=== PATIENT | male | born 1940 | race Caucasian/White ===

== ENCOUNTER → 2017-06-18 11:21 | Outpatient (CLI) | payer MEDICARE, OTHER, SELFPAY ==
[2017-06-18 12:32] LABS: Absolute Lymphocyte Count 2.76 X10^3/ul (0.83-4.51); Absolute Neutrophil Count 3.9 X10^3/uL (2.0-7.7); Basophil# 0.03 X10^3/uL; Basophil% 0.4 % (0-1); Eosinophil# 0.38 X10^3/uL; Hematocrit 42.2 % (40-54); Hemoglobin 13.5 g/dl (13.0-16.5); Lymphocyte # 2.76 X10^3/ul (4.0); Mean Corpuscular Hgb 30.8 pg (27.0-32.0); Mean Corpuscular Volume 96.1 fL (80-94); Mean Platelet Vol. 10.1 fl (6.2-12.0); Monocyte# 0.63 X10^3/uL; Monocyte% 8.2 % (0-10); Neutrophil # 3.85 X10^3/uL (2.7-7.7); Neutrophil % 50.3 % (47-70); POSITIVE COUNT NO; POSITIVE DIFFERENTIAL NO; POSITIVE MORPHOLOGY NO; Platelet Count 259 K/mm3 (150-450); RBC Distribution Width CV 13.2 % (11.6-14.6); RBC Distribution Width SD 45.6 fl (35.1-43.9); Red Blood Count 4.39 M/mm3 (4.6-6.2); White Blood Count 7.7 K/mm3 (4.4-11.0)
[2017-06-18 12:57] LABS: AST(SGOT) 15 U/L (15-37); Alanine Aminotransfer ALT/SGPT 24 U/L (16-61); Albumin, Serum 3.5 g/dL (3.2-5.0); Alkaline Phosphatase 59 U/L (45-117); Anion Gap 6 (5-15); BUN 17 mg/dL (7-18); Calcium,Total 8.4 mg/dL (8.5-10.1); Chloride 107 mmol/L (98-107); Cholesterol 116 mg/dL (200); Creatinine, Serum 1.13 mg/dL (0.70-1.30); EST Glomerular Filtration Rate 67 mL/min (>60); Est Glom Filt Rate - Afr Amer 81 mL/min (>60); Globulin 3.6 g/dL (2.2-4.2); Glucose 113 mg/dL (74-106); High Density Lipoprotein 39 mg/dL; Potassium 4.1 mmol/L (3.5-5.1); Protein, Total 7.1 g/dL (6.4-8.2); Sodium Level 141 mmol/L (136-145); Triglycerides 136 mg/dL; Very Low Density Lipoprotein 27 mg/dL (5-40)
[2017-06-18 12:58] LABS: Hemoglobin A1c 7.1 % (4.2-6.3)
[2017-06-18 13:06] LABS: Microalbumin,Random Urine 15.8 mg/L (NO RANGE EST.)
== END ==
PROVIDERS: Family Provider Family Medicine; PCP Family Medicine; Visit Provider Family Medicine
DX: E11.40 Type 2 diabetes mellitus with diabetic neuropathy, unspecified (principal); I10 Essential (primary) hypertension; E78.5 Hyperlipidemia, unspecified
CPT/HCPCS: 36415; 80053; 80061; 82043; 82570; 83036; 85025

== ENCOUNTER → 2017-12-16 15:43 | Outpatient (CLI) | payer MEDICARE, OTHER, SELFPAY ==
[2017-12-16 16:32] LABS: Absolute Lymphocyte Count 3.04 X10^3/ul (0.83-4.51); Absolute Neutrophil Count 7.6 X10^3/uL (2.0-7.7); Basophil# 0.04 X10^3/uL; Basophil% 0.3 % (0-1); Eosinophil# 0.52 X10^3/uL; Eosinophils% 4.3 % (0-5); Hematocrit 38.4 % (40-54); Hemoglobin 12.9 g/dl (13.0-16.5); Lymphocyte # 3.04 X10^3/ul (4.0); Lymphocyte % 25.1 % (19-41); Mean Corp Hgb Conc 33.6 g/gl (32-36); Mean Corpuscular Hgb 32.2 pg (27.0-32.0); Mean Corpuscular Volume 95.8 fL (80-94); Mean Platelet Vol. 9.7 fl (6.2-12.0); Monocyte% 7.4 % (0-10); Neutrophil # 7.57 X10^3/uL (2.7-7.7); Neutrophil % 62.7 % (47-70); Platelet Count 264 K/mm3 (150-450); RBC Distribution Width CV 12.8 % (11.6-14.6); RBC Distribution Width SD 43.4 fl (35.1-43.9); Red Blood Count 4.01 M/mm3 (4.6-6.2); White Blood Count 12.1 K/mm3 (4.4-11.0)
[2017-12-16 16:59] LABS: ALB/GLOB Ratio 1.1 RATIO (0.9-2.4); AST(SGOT) 15 U/L (15-37); Alanine Aminotransfer ALT/SGPT 25 U/L (16-61); Albumin, Serum 3.7 g/dL (3.2-5.0); Alkaline Phosphatase 60 U/L (45-117); Anion Gap 8 (5-15); BUN 22 mg/dL (7-18); Calcium,Total 8.7 mg/dL (8.5-10.1); Chloride 109 mmol/L (98-107); Cholesterol 123 mg/dL (200); Creatinine, Serum 1.16 mg/dL (0.70-1.30); EST Glomerular Filtration Rate 65 mL/min (>60); Est Glom Filt Rate - Afr Amer 78 mL/min (>60); Globulin 3.4 g/dL (2.2-4.2); Glucose 101 mg/dL (74-106); High Density Lipoprotein 36 mg/dL; Potassium 4.2 mmol/L (3.5-5.1); Protein, Total 7.1 g/dL (6.4-8.2); Sodium Level 142 mmol/L (136-145); Triglycerides 127 mg/dL; Very Low Density Lipoprotein 25 mg/dL (5-40)
[2017-12-16 17:07] LABS: POSITIVE COUNT NO; POSITIVE DIFFERENTIAL NO; POSITIVE MORPHOLOGY NO
[2017-12-16 17:31] LABS: Hemoglobin A1c 6.8 % (4.2-6.3)
[2017-12-16 17:47] LABS: Microalbumin,Random Urine 13.4 mg/L (NO RANGE EST.); Microalbumin:Creatinine Ratio 11.4 mg/g CRE (<30 mg/g CRE)
== END ==
PROVIDERS: Family Provider Family Medicine; PCP Family Medicine; Visit Provider Family Medicine
DX: E11.40 Type 2 diabetes mellitus with diabetic neuropathy, unspecified (principal); E78.5 Hyperlipidemia, unspecified; I10 Essential (primary) hypertension
CPT/HCPCS: 36415; 80053; 80061; 82043; 82570; 83036; 85025

== ENCOUNTER 2018-11-28 13:41 | Emergency (ER) | payer MEDICARE, OTHER, SELFPAY ==
[2018-11-28 13:42] VITALS: BP 150/67; PULSE 71; RESP 16; TEMP 36.9; O2SAT 96; BMI 32.1
--- NOTE | 2018-11-28 14:22 | CT_ITS ---
STUDY: CT ABDOMEN AND PELVIS WITHOUT CONTRAST REASON FOR EXAM: Male, 78 years old. Right-sided pain RADIATION DOSAGE (If Supplied By Facility): CTDIvol = ( 14.61 ) mGy, DLP = ( 773.91 ) mGycm TECHNIQUE: Transaxial images were obtained from the dome of the diaphragm to the symphysis pubis without oral contrast, and without intravenous contrast. Sagittal and coronal images were reconstructed. Individualized dose optimization techniques were used for this CT. COMPARISON: None. FINDINGS: The visualized lung bases are unremarkable. The visualized portions of the heart are within normal limits. Small hiatal hernia. Normal liver. There are multiple gallstones. Normal spleen. Normal pancreas. Normal bilateral adrenal glands. Right obstructive uropathy due to 6.4 mm stone at the level of L4, with mild to moderate right hydroureteronephrosis proximal to this stone. 1.3 cm probable hyperdense cyst versus solid lesion in the right lower kidney. 5.8 CM left upper pole renal cyst. There is left lower renal calyceal stone measuring up to 1.4 x 0.9 CM in cross-section. Normal visualized stomach. Normal small intestine. There are multiple colonic diverticula consistent with diverticulosis. The appendix is visualized and appears normal. There is diffuse atherosclerotic calcification of the abdominal aorta, without a demonstrated aneurysm. Normal inferior vena cava. Normal retroperitoneum. Normal urinary bladder. Prostatomegaly. There is a small umbilical hernia containing fat. There are diffuse degenerative changes of the visualized lumbar spine. CT/Abdomen/Pelvis without Cont IMPRESSION: Right obstructive uropathy due to 6.4 mm stone at the level of L4, with mild to moderate right hydroureteronephrosis proximal to this stone. 1.3 cm probable hyperdense cyst versus solid lesion in the right lower kidney. 5.8 CM left upper pole renal cyst. There is left lower renal calyceal stone measuring up to 1.4 x 0.9 CM in cross-section. Prostatomegaly. Small hiatal hernia. Electronically Signed: Santana Benson MD at 15:04 EDT Tel [phone], Service support ,
--- NOTE | 2018-11-28 14:29 | ED.VIS.GEN ---
History of Present Illness Chief Complaint: Abd Pain Detail of Chief Complaint: Right flank and right sided abdominal pain Informant: Patient Onset: Yesterday Context: Sudden Onset Timing: Continuous, Waxes and wanes Quality: Pain Location: Predominantly right lower quadrant today Current Severity: Mild Maximum Severity: Severe Worsened by: Nothing Relieved by: Ibuprofen Associated Symptoms: Nausea last evening Narrative: Patient is an elderly male with history of renal/ureterolithiasis. Last time he sought medical attention for obstructing stone was 15 years ago. He presents with right flank/abdominal pain that started last evening. There is associated nausea. He denies fever, chills night sweats. He denies dysuria, frequency, urgency hematuria. He denies testicular pain. There is no history of trauma. He denies anorexia. He has no food intolerance. Prior similar symptoms: Yes - 15 years ago secondary to obstructing stone Recent Illness/Hospitalization: No - Past Medical History (1) Ureterolithiasis Status: Acute (2) History of type 2 diabetes mellitus Status: Acute (3) Accelerated hypertension Status: Acute Past Medical History - Allergies and Home Meds Allergies/Adverse Reactions: Allergies No Known Allergies Allergy (Verified 11/28/18 13:42) Primary Care Physician: Tai Lopez DO [Primary Care Provider] - Prior records reviewed: Yes Surgical History: noncontributory Lives: Spouse/ Significant Other Smoking Status: Never smoker Alcohol: None Drugs: None Review of Systems General: Denies: Chills, Fever, Sweats Eyes: Denies: Visual changes - bilaterally, Diplopia Cardiovascular: Denies: Chest pain, Palpitations Respiratory: Denies: Dyspnea, Cough, Dyspnea on exertion Gastrointestinal: Reports: Abdominal pain, Nausea. Denies: Vomiting, Diarrhea, Constipation, Melena, Hematochezia, -, - Musculoskeletal: Reports: Back pain. Denies: Myalgias, Arthralgias, Neck pain, Swelling, Extremity Pain, -, - Neurological: Denies: Headache, Weakness, Numbness Hematologic: Denies: Easy bruising, Easy bleeding Allergy: Denies: Uticaria, Swelling of the mouth Physical Exam Vital Signs/Narrative: Vital Signs Temp Pulse Resp BP Pulse Ox 11/28/18 13:42 98.4 F 71 16 150/67 H 96 Inital Vital Signs reviewed: Yes General: Well nourished, Well developed, No Acute Distress Head: Normocephalic, Atraumatic Eyes: Perrl, EOMI ENT: Moist mucous membranes, No rhinorrhea Neck: Supple, Nontender Cardiovascular: Regular rate, Regular rhythm, No murmurs, Normal S1, Normal S2 Respiratory: No distress, CTA bilaterally, Chest nontender Abdomen: Soft, Nontender, Nondistended, Normal bowel sounds, No masses Back: Nontender, Normal Inspection. Negative for: CVA tenderness Extremities: Nontender, No edema Skin: Normal color, No rash Neurological: Alert, Oriented x3, Cranial nerves II-XII grossly intact, Normal Strength, Normal Sensation Psychological: Normal affect, Normal Mood Diagnostic/Tx/Re-eval Impressions Abdomen/Pelvis CT 11/28/18 14:22 IMPRESSION: Right obstructive uropathy due to 6.4 mm stone at the level of L4, with mild to moderate right hydroureteronephrosis proximal to this stone. 1.3 cm probable hyperdense cyst versus solid lesion in the right lower kidney. 5.8 CM left upper pole renal cyst. There is left lower renal calyceal stone measuring up to 1.4 x 0.9 CM in cross-section. Prostatomegaly. Small hiatal hernia. Electronically Signed: Santana Benson MD at 15:04 EDT Tel [phone], Service support , 11/28/18 14:22 Abdomen/Pelvis without Cont [CT] Stat Laboratory Results 11/28/18 14:30 Sodium 142 Potassium 4.5 Chloride 110 H Carbon Dioxide 26.0 Anion Gap 6 BUN 25 H Creatinine 1.67 H Estim Creat Clear Calc 38.20 Est GFR (MDRD) Af Amer 51 L Est GFR (MDRD) Non-Af 42 L BUN/Creatinine Ratio 15.0 Glucose 133 H Calcium 8.8 Patient has an obstructing right stone. Renal function is slightly impaired with a creatinine of 1.67. We will need to compare prior lab results. Prior creatinine 1.22 December 2017. This may be secondary to patient taking NSAIDs. UA is unremarkable other than microscopic hematuria. Case was discussed with urology. Patient was informed not to take any more ibuprofen. - Medical Decision Making Abrupt onset of pain need to evaluate for ureterolithiasis with obstruction. UA was obtained to assess for infection. CBC was obtained to assess white count and H&H. This may also represent atypical presentation for appendicitis since pain is predominantly right lower quadrant at this time. There is no evidence of inguinal hernia. Patient was offered pain medicine. He states that ibuprofen took at home has essentially alleviated his pain. Says it was very significant last evening. ED Disposition - Plan for ED Patient: Disposition: Home or Assisted Living Diagnosis: Hydronephrosis concurrent with and due to calculi of kidney and ureter, Acute renal insufficiency Instructions: KIDNEY STONE w/ Colic, Renal Insufficiency Prescriptions: Oxycodone HCl/Acetaminophen [Percocet 5/325] 1 tab PO Q6H PRN PRN 5 Days #20 tab PRN Reason: Right sided pain Prescription Printed Referrals: Tai Lopez DO [Primary Care Provider] - Nick Guallpa MD [STAFF PHYSICIAN] - 3-5 Days Additional Instructions: Not take ibuprofen or Aleve because of injury to your kidney.
[2018-11-28 14:52] LABS: Anion Gap 6 (5-15); BUN 25 mg/dL (7-18); Calcium,Total 8.8 mg/dL (8.5-10.1); Chloride 110 mmol/L (98-107); Creatinine, Serum 1.67 mg/dL (0.70-1.30); EST Glomerular Filtration Rate 42 mL/min (>60); Est Glom Filt Rate - Afr Amer 51 mL/min (>60); Glucose 133 mg/dL (74-106); Potassium 4.5 mmol/L (3.5-5.1); Sodium Level 142 mmol/L (136-145)
[2018-11-28 15:08] LABS: Bacteria 0 SEEN /hpf (None Seen); Mucous, Urine 0 SEEN /hpf (<or=2+); Squamous Epithelial Cells - UA 0 SEEN /hpf (0-5)
[2018-11-28 15:20] LABS: Color, Urine Yellow (Yellow); Glucose, Dipstick 100 mg/dl (Normal); Ketone-Dipstick Negative (Negative); Leukocyte Esterase-Dipstick 100 /ul (Negative); Nitrite-Dipstick Negative (Negative); Occult Blood-Urine 250 /ul (Negative); Protein-Dipstick Negative (Negative); Specific Gravity, Urine 1.015 (1.002-1.030); Urine Bilirubin Dipstick Negative (Negative); Urine Clarity Clear (Clear); Urine Urobilinogen Normal (Normal)
[2018-11-28 15:29] LABS: Red Blood Cells-Urine 5-10 SEEN /hpf (0-5); White Blood Cells 0-5 SEEN /hpf (0-5)
[2018-11-28 16:00] VITALS: BP 126/58; PULSE 63; RESP 16; O2SAT 97
== END 2018-11-28 16:02 | disposition home or self-care (01) ==
PROVIDERS: Emergency Provider Emergency Medicine; Family Provider Family Medicine; PCP Family Medicine
DX: N13.2 Hydronephrosis with renal and ureteral calculous obstruction (principal); N28.9 Disorder of kidney and ureter, unspecified; Z87.442 Personal history of urinary calculi; I10 Essential (primary) hypertension; E11.9 Type 2 diabetes mellitus without complications; Z79.82 Long term (current) use of aspirin; Z79.84 Long term (current) use of oral hypoglycemic drugs
CPT/HCPCS: 74176; 80048; 81001; 99284; A4216

== ENCOUNTER → 2019-01-01 10:35 | Outpatient (CLI) | payer MEDICARE, OTHER, SELFPAY ==
--- NOTE | 2018-12-10 11:20 | RAD_ITS ---
STUDY: X-RAY - ABDOMEN/PELVIS REASON FOR EXAM: Male, 78 years old. Right-sided kidney stone. TECHNIQUE: Single AP view of the abdomen / pelvis. COMPARISON: None. FINDINGS: Normal visualized lung bases. There is an unremarkable bowel gas pattern. Small bilateral intrarenal calculi. There is a 3.4 mm rounded calcification in the right hemipelvis. This may represent a distal right ureteral calculus. Normal soft tissue structures. There are diffuse degenerative changes of the visualized lumbar spine. RAD/Abdomen Single View IMPRESSION: 3.4 mm rounded calcification in the right hemipelvis. Small bilateral intrarenal calculi. Electronically Signed: Danie Berger, at 11:37 EDT , Service support ,
[2018-12-10 11:46] LABS: Bedside Glucose 126 mg/dL (70-110)
[2018-12-10 11:50] VITALS: BP 105/52; PULSE 68; RESP 16; TEMP 36.9; O2SAT 96; BMI 30.2
[2018-12-10] MEDS: Lactated Ringers 1,000 ML 100 ML IV (12:08)
--- NOTE | 2018-12-10 14:35 | CT_ITS ---
STUDY: CT ABDOMEN AND PELVIS WITHOUT CONTRAST REASON FOR EXAM: Male, 78 years old. Right renal calculus. RADIATION DOSAGE (If Supplied By Facility): CTDIvol = ( 19.32 ) mGy, DLP = ( 950.76 ) mGycm TECHNIQUE: Transaxial images were obtained from the dome of the diaphragm to the symphysis pubis without oral contrast, and without intravenous contrast. Sagittal and coronal images were reconstructed. Individualized dose optimization techniques were used for this CT. COMPARISON: Comparison is made with prior examination November 28, 2018. FINDINGS: Mild degree of increased markings at the lung bases suggestive of atelectasis and/or scarring. The visualized portions of the heart are within normal limits. Normal liver. There are multiple small gallstones. Normal spleen. Normal pancreas. Normal bilateral adrenal glands. Stable 1.3 cm hyperdense cyst in the inferior posterior aspect of the right kidney. Since prior study, there has been a decrease in the right perinephric and periureteric stranding. The previously seen right ureteral calculus is not seen at this time. Stable 5.3 cm x 5.5 cm x 5.9 cm hypodense mass in the anterior aspect of the left kidney. This is not a simple cyst. Stable 7 mm nonobstructive calculus in the lower pole calyx of the left kidney. Normal visualized stomach. Normal small intestine. There are multiple colonic diverticula consistent with diverticulosis. The appendix is visualized and appears normal. There is diffuse atherosclerotic calcification of the abdominal aorta, without a demonstrated aneurysm. Normal inferior vena cava. Normal retroperitoneum. Normal urinary bladder. There is enlargement of the prostate gland. Central prostatic calcification. There is a small umbilical hernia containing fat. There are diffuse degenerative changes of the visualized lumbar spine. CT/Abdomen/Pelvis without Cont IMPRESSION: The previously seen right ureteral calculus is not seen at this time. Electronically Signed: Danie Berger, at 15:09 EDT , Service support ,
== END ==
PROVIDERS: Family Provider Family Medicine; PCP Family Medicine; Referring Provider Urology; Visit Provider Urology
DX: N20.2 Calculus of kidney with calculus of ureter (principal); E10.9 Type 1 diabetes mellitus without complications; Z79.84 Long term (current) use of oral hypoglycemic drugs
CPT/HCPCS: 74018; 74176; 82962; J7120; J2405

== ENCOUNTER → 2019-01-15 08:39 | Outpatient (CLI) | payer MEDICARE, OTHER, SELFPAY ==
[2018-12-10 11:50] VITALS: BMI 30.2
[2019-01-15 12:25] LABS: Absolute Lymphocyte Count 2.62 X10^3/uL (0.83-4.51); Absolute Neutrophil Count 4.7 X10^3/uL (2.0-7.7); Basophil# 0.04 X10^3/uL; Basophil% 0.5 % (0-1); Eosinophil# 0.49 X10^3/uL; Eosinophils% 5.7 % (0-5); Hematocrit 43.3 % (40-54); Hemoglobin 13.8 g/dL (13.0-16.5); Lymphocyte # 2.62 X10^3/ul (4.0); Lymphocyte % 30.6 % (19-41); Mean Corp Hgb Conc 31.9 g/dL (32-36); Mean Corpuscular Hgb 31.3 pg (27.0-32.0); Mean Corpuscular Volume 98.2 fL (80-94); Mean Platelet Vol. 10.5 fl (6.2-12.0); Monocyte# 0.65 X10^3/uL; Monocyte% 7.6 % (0-10); NRBC Flagged by Analyzer 0 % (0-5); Neutrophil # 4.73 X10^3/uL (2.7-7.7); Neutrophil % 55.4 % (47-70); Platelet Count 256 K/mm3 (150-450); RBC Distribution Width CV 12.8 % (11.6-14.6); RBC Distribution Width SD 46.5 fl (35.1-43.9); Red Blood Count 4.41 M/mm3 (4.6-6.2); White Blood Count 8.6 K/mm3 (4.4-11.0)
[2019-01-15 12:42] LABS: AST(SGOT) 13 U/L (15-37); Alanine Aminotransfer ALT/SGPT 20 U/L (16-61); Albumin, Serum 3.7 g/dL (3.2-5.0); Alkaline Phosphatase 70 U/L (45-117); Anion Gap 7 (5-15); BUN 18 mg/dL (7-18); BUN/Creat Ratio 15.1 RATIO (10-20); Chloride 107 mmol/L (98-107); Cholesterol 135 mg/dL (200); Creatinine, Serum 1.19 mg/dL (0.70-1.30); EST Glomerular Filtration Rate 63 mL/min (>60); Est Glom Filt Rate - Afr Amer 76 mL/min (>60); Globulin 3.6 g/dL (2.2-4.2); Glucose 117 mg/dL (74-106); High Density Lipoprotein 43 mg/dL; PSA,Total - Annual Screen 2.28 ng/mL (0.00-4.00); Potassium 4.8 mmol/L (3.5-5.1); Protein, Total 7.3 g/dL (6.4-8.2); Sodium Level 141 mmol/L (136-145); Triglycerides 113 mg/dL; Very Low Density Lipoprotein 23 mg/dL (5-40)
[2019-01-15 12:47] LABS: Hemoglobin A1c 6.4 % (4.2-6.3)
[2019-01-15 13:09] LABS: Microalbumin,Random Urine 12.5 mg/L (NO RANGE EST.); Microalbumin:Creatinine Ratio 14.5 mg/g CRE (<30 mg/g CRE)
[2019-01-16 16:03] LABS: V-Zoster IgG (Immunity) 307 index (Immune >165)
== END ==
LOC: LAB.FUTURE 07-22 00:16 → BFHLAB 01-21 13:40
PROVIDERS: Family Provider Family Medicine; PCP Family Medicine; Visit Provider Family Medicine
DX: E11.40 Type 2 diabetes mellitus with diabetic neuropathy, unspecified (principal); I10 Essential (primary) hypertension; E78.5 Hyperlipidemia, unspecified; Z12.5 Encounter for screening for malignant neoplasm of prostate
CPT/HCPCS: 36415; 80053; 80061; 82043; 82570; 83036; 84153; 85025; 86787; G0103

== ENCOUNTER → 2019-07-20 14:32 | Outpatient (CLI) | payer MEDICARE, OTHER, SELFPAY ==
[2018-12-10 11:50] VITALS: BMI 30.2
[2019-07-20 19:59] LABS: Hemoglobin A1c 6.2 % (4.2-6.3)
== END ==
PROVIDERS: PCP Family Medicine; Referring Provider Family Medicine; Visit Provider Family Medicine
DX: E11.40 Type 2 diabetes mellitus with diabetic neuropathy, unspecified (principal)
CPT/HCPCS: 36415; 83036

== ENCOUNTER → 2020-01-13 | Outpatient (CLI) | payer MEDICARE, OTHER, SELFPAY ==
[2018-12-10 11:50] VITALS: BMI 30.2
[2020-01-13 15:14] LABS: Absolute Lymphocyte Count 2.51 X10^3/uL (0.83-4.51); Absolute Neutrophil Count 4.5 X10^3/uL (2.0-7.7); Basophil# 0.05 X10^3/uL; Basophil% 0.6 % (0-1); Eosinophil# 0.33 X10^3/uL; Eosinophils% 4.1 % (0-5); Hematocrit 39.9 % (40-54); Lymphocyte # 2.51 X10^3/ul (4.0); Lymphocyte % 31.3 % (19-41); Mean Corp Hgb Conc 32.6 g/dL (32-36); Mean Corpuscular Hgb 31.4 pg (27.0-32.0); Mean Corpuscular Volume 96.4 fL (80-94); Mean Platelet Vol. 10.2 fl (6.2-12.0); Monocyte# 0.66 X10^3/uL; Monocyte% 8.2 % (0-10); NRBC Flagged by Analyzer 0 % (0-5); Neutrophil # 4.46 X10^3/uL (2.7-7.7); Neutrophil % 55.6 % (47-70); Platelet Count 266 K/mm3 (150-450); RBC Distribution Width CV 12.8 % (11.6-14.6); RBC Distribution Width SD 45.8 fl (35.1-43.9); Red Blood Count 4.14 M/mm3 (4.6-6.2)
[2020-01-13 15:31] LABS: Microalbumin,Random Urine 17.6 mg/L (NO RANGE EST.); Microalbumin:Creatinine Ratio 12.3 mg/g CRE (<30 mg/g CRE)
[2020-01-13 15:40] LABS: ALB/GLOB Ratio 1.1 RATIO (0.9-2.4); AST(SGOT) 11 U/L (15-37); Alanine Aminotransfer ALT/SGPT 19 U/L (16-61); Albumin, Serum 3.8 g/dL (3.2-5.0); Alkaline Phosphatase 71 U/L (45-117); Anion Gap 7 (5-15); BUN 20 mg/dL (7-18); BUN/Creat Ratio 16.8 RATIO (10-20); Calcium,Total 8.5 mg/dL (8.5-10.1); Chloride 106 mmol/L (98-107); Cholesterol 121 mg/dL (200); Creatinine, Serum 1.19 mg/dL (0.70-1.30); EST Glomerular Filtration Rate 63 mL/min (>60); Est Glom Filt Rate - Afr Amer 76 mL/min (>60); Globulin 3.5 g/dL (2.2-4.2); Glucose 98 mg/dL (74-106); High Density Lipoprotein 48 mg/dL; Potassium 4.2 mmol/L (3.5-5.1); Protein, Total 7.3 g/dL (6.4-8.2); Sodium Level 138 mmol/L (136-145); Triglycerides 83 mg/dL; Very Low Density Lipoprotein 17 mg/dL (5-40)
[2020-01-13 15:52] LABS: Hemoglobin A1c 6.2 % (3.8-5.6)
== END | disposition home or self-care (01) ==
LOC: BFHLAB 10:52
PROVIDERS: PCP Family Medicine; Visit Provider Family Medicine
DX: Z00.01 Encounter for general adult medical examination with abnormal findings (principal); E11.40 Type 2 diabetes mellitus with diabetic neuropathy, unspecified; I10 Essential (primary) hypertension; E78.5 Hyperlipidemia, unspecified; N20.0 Calculus of kidney
CPT/HCPCS: 36415; 80053; 80061; 82043; 82570; 83036; 85025

== ENCOUNTER → 2022-01-25 | Outpatient (CLI) | payer MEDICARE, OTHER, SELFPAY ==
[2022-01-25 12:21] LABS: Absolute Lymphocyte Count 2.13 X10^3/uL (0.83-4.51); Absolute Neutrophil Count 5.4 X10^3/uL (2.0-7.7); Basophil# 0.04 X10^3/uL; Basophil% 0.5 % (0-1); Eosinophil# 0.28 X10^3/uL; Eosinophils% 3.3 % (0-5); Hematocrit 43.6 % (40-54); Hemoglobin 13.8 g/dL (13.0-16.5); Lymphocyte # 2.13 X10^3/ul (0.83-4.51); Lymphocyte % 25.1 % (19-41); Mean Corp Hgb Conc 31.7 g/dL (32-36); Mean Corpuscular Hgb 28.4 pg (27.0-32.0); Mean Corpuscular Volume 89.7 fL (80-94); Mean Platelet Vol. 9.6 fl (6.2-12.0); Monocyte# 0.63 X10^3/uL; Monocyte% 7.4 % (0-10); NRBC Flagged by Analyzer 0 % (0-5); Neutrophil # 5.37 X10^3/uL (2.7-7.7); Neutrophil % 63.3 % (47-70); Platelet Count 337 K/mm3 (150-450); RBC Distribution Width CV 14.1 % (11.6-14.6); RBC Distribution Width SD 46.1 fl (35.1-43.9); Red Blood Count 4.86 M/mm3 (4.6-6.2); White Blood Count 8.5 K/mm3 (4.4-11.0)
[2022-01-25 12:45] LABS: Hemoglobin A1c 6.5 % (3.8-5.6)
[2022-01-25 12:52] LABS: ALB/GLOB Ratio 0.8 RATIO (0.9-2.4); AST(SGOT) 10 U/L (15-37); Alanine Aminotransfer ALT/SGPT 16 U/L (16-61); Albumin, Serum 3.4 g/dL (3.2-5.0); Alkaline Phosphatase 104 U/L (45-117); Anion Gap 6 (5-15); BUN 14 mg/dL (7-18); BUN/Creat Ratio 13.1 RATIO (10-20); Chloride 107 mmol/L (98-107); Cholesterol 141 mg/dL (200); Creatinine, Serum 1.07 mg/dL (0.70-1.30); EST Glomerular Filtration Rate 70 mL/min (>60); Est Glom Filt Rate - Afr Amer 85 mL/min (>60); Globulin 4.4 g/dL (2.2-4.2); Glucose 141 mg/dL (74-106); High Density Lipoprotein 39 mg/dL; PSA,Total - Annual Screen 3.52 ng/mL (0.00-4.00); Potassium 4.5 mmol/L (3.5-5.1); Protein, Total 7.8 g/dL (6.4-8.2); Sodium Level 139 mmol/L (136-145); Triglycerides 139 mg/dL; Very Low Density Lipoprotein 28 mg/dL (5-40)
[2022-01-25 13:00] LABS: Microalbumin,Random Urine 66.5 mg/L (NO RANGE EST.); Microalbumin:Creatinine Ratio 72.5 mg/g CRE (<30 mg/g CRE)
== END | disposition home or self-care (01) ==
LOC: BFHLAB 09:33
PROVIDERS: PCP Family Medicine; Visit Provider Family Medicine
DX: E11.40 Type 2 diabetes mellitus with diabetic neuropathy, unspecified (principal); I10 Essential (primary) hypertension; E78.5 Hyperlipidemia, unspecified; Z12.5 Encounter for screening for malignant neoplasm of prostate
CPT/HCPCS: 36415; 80053; 80061; 82043; 82570; 83036; 84153; 85025; G0103

== ENCOUNTER → 2023-02-04 | Outpatient (CLI) | payer MEDICARE, OTHER, SELFPAY ==
[2023-02-04 12:09] LABS: Absolute Lymphocyte Count 1.88 X10^3/uL (0.83-4.51); Basophil# 0.04 X10^3/uL; Basophil% 0.5 % (0-1); Eosinophil# 0.23 X10^3/uL; Eosinophils% 2.6 % (0-5); Hemoglobin 13.3 g/dL (13.0-16.5); Lymphocyte # 1.88 X10^3/ul (0.83-4.51); Lymphocyte % 21.6 % (19-41); Mean Corp Hgb Conc 30.2 g/dL (32-36); Mean Corpuscular Hgb 23.1 pg (27.0-32.0); Mean Corpuscular Volume 76.5 fL (80-94); Mean Platelet Vol. 8.7 fl (6.2-12.0); Monocyte# 0.55 X10^3/uL; Monocyte% 6.3 % (0-10); NRBC Flagged by Analyzer 0 % (0-5); Neutrophil # 5.98 X10^3/uL (2.7-7.7); Neutrophil % 68.8 % (47-70); Platelet Count 496 K/mm3 (150-450); RBC Distribution Width SD 52.7 fl (35.1-43.9); Red Blood Count 5.75 M/mm3 (4.6-6.2); White Blood Count 8.7 K/mm3 (4.4-11.0)
[2023-02-04 13:18] LABS: ALB/GLOB Ratio 0.6 RATIO (0.9-2.4); AST(SGOT) 10 U/L (15-37); Alanine Aminotransfer ALT/SGPT 14 U/L (16-61); Alkaline Phosphatase 81 U/L (45-117); Anion Gap 5 (5-15); BUN 17 mg/dL (7-18); BUN/Creat Ratio 16.5 RATIO (10-20); Calcium,Total 9.1 mg/dL (8.5-10.1); Chloride 106 mmol/L (98-107); Cholesterol 105 mg/dL (200); Creatinine, Serum 1.03 mg/dL (0.70-1.30); EST Glomerular Filtration Rate 73 mL/min (>60); Est Glom Filt Rate - Afr Amer 89 mL/min (>60); Globulin 4.8 g/dL (2.2-4.2); Glucose 150 mg/dL (74-106); High Density Lipoprotein 44 mg/dL; Potassium 4.1 mmol/L (3.5-5.1); Protein, Total 7.8 g/dL (6.4-8.2); Sodium Level 137 mmol/L (136-145); Triglycerides 94 mg/dL; Very Low Density Lipoprotein 19 mg/dL (5-40)
[2023-02-04 13:50] LABS: Hemoglobin A1c 6.7 % (3.8-5.6)
== END | disposition home or self-care (01) ==
LOC: BFHLAB 10:39
PROVIDERS: PCP Family Medicine; Referring Provider Family Medicine; Visit Provider Family Medicine
DX: E11.40 Type 2 diabetes mellitus with diabetic neuropathy, unspecified (principal); I10 Essential (primary) hypertension; E78.5 Hyperlipidemia, unspecified
CPT/HCPCS: 36415; 80053; 80061; 83036; 85025

== ENCOUNTER → 2023-02-05 | Outpatient (CLI) | payer MEDICARE, SELFPAY ==
[2023-02-05 18:11] LABS: Microalbumin,Random Urine 18.1 mg/L (NO RANGE EST.); Microalbumin:Creatinine Ratio 20.5 mg/g CRE (<30 mg/g CRE)
== END | disposition home or self-care (01) ==
LOC: LABSPEC 14:46
PROVIDERS: PCP Family Medicine; Referring Provider Family Medicine; Visit Provider Family Medicine
DX: I10 Essential (primary) hypertension (principal); E11.40 Type 2 diabetes mellitus with diabetic neuropathy, unspecified; E78.5 Hyperlipidemia, unspecified
CPT/HCPCS: 82043; 82570

== ENCOUNTER → 2023-08-02 | Outpatient (CLI) | payer MEDICARE, SELFPAY ==
[2023-08-02 12:21] LABS: Absolute Lymphocyte Count 2.16 X10^3/uL (0.83-4.51); Absolute Neutrophil Count 6.2 X10^3/uL (2.0-7.7); Basophil# 0.04 X10^3/uL; Basophil% 0.4 % (0-1); Eosinophil# 0.26 X10^3/uL; Eosinophils% 2.8 % (0-5); Hematocrit 45.3 % (40-54); Lymphocyte # 2.16 X10^3/ul (0.83-4.51); Mean Corp Hgb Conc 28.7 g/dL (32-36); Mean Corpuscular Hgb 21.3 pg (27.0-32.0); Mean Corpuscular Volume 74.3 fL (80-94); Mean Platelet Vol. 8.7 fl (6.2-12.0); Monocyte# 0.68 X10^3/uL; Monocyte% 7.2 % (0-10); NRBC Flagged by Analyzer 0 % (0-5); Neutrophil # 6.24 X10^3/uL (2.7-7.7); Neutrophil % 66.3 % (47-70); POSITIVE MORPHOLOGY YES; Platelet Count 473 K/mm3 (150-450); RBC Distribution Width CV 21.2 % (11.6-14.6); RBC Distribution Width SD 53.4 fl (35.1-43.9); White Blood Count 9.4 K/mm3 (4.4-11.0)
[2023-08-02 12:36] LABS: Differential Indicated SCAN CRITERIA MET
[2023-08-02 13:16] LABS: Anisocytosis 1+
[2023-08-02 15:38] LABS: Hemoglobin A1c 6.9 % (3.8-5.6)
[2023-08-06 15:08] LABS: Pathologist Review Reviewed
== END | disposition home or self-care (01) ==
LOC: BFHLAB 10:31
PROVIDERS: PCP Family Medicine; Referring Provider Family Medicine; Visit Provider Family Medicine
DX: E11.40 Type 2 diabetes mellitus with diabetic neuropathy, unspecified (principal); D75.839 Thrombocytosis, unspecified
CPT/HCPCS: 83036; 85025

== ENCOUNTER → 2023-10-14 | Outpatient (CLI) | payer MEDICARE, SELFPAY ==
[2023-10-14 17:49] LABS: Absolute Lymphocyte Count 2.43 X10^3/uL (0.83-4.51); Absolute Neutrophil Count 5.6 X10^3/uL (2.0-7.7); Basophil# 0.05 X10^3/uL; Basophil% 0.6 % (0-1); Eosinophil# 0.13 X10^3/uL; Eosinophils% 1.4 % (0-5); Hematocrit 44.1 % (40-54); Hemoglobin 12.5 g/dL (13.0-16.5); Lymphocyte # 2.43 X10^3/ul (0.83-4.51); Lymphocyte % 26.8 % (19-41); Mean Corp Hgb Conc 28.3 g/dL (32-36); Mean Corpuscular Volume 70.6 fL (80-94); Mean Platelet Vol. 8.5 fl (6.2-12.0); Monocyte% 7.7 % (0-10); NRBC Flagged by Analyzer 0 % (0-5); Neutrophil # 5.62 X10^3/uL (2.7-7.7); Neutrophil % 62.1 % (47-70); POSITIVE MORPHOLOGY YES; Platelet Count 502 K/mm3 (150-450); RBC Distribution Width CV 21.7 % (11.6-14.6); RBC Distribution Width SD 52.1 fl (35.1-43.9); Red Blood Count 6.25 M/mm3 (4.6-6.2); White Blood Count 9.1 K/mm3 (4.4-11.0)
[2023-10-14 17:55] LABS: Differential Indicated SCAN CRITERIA MET
[2023-10-14 18:11] LABS: Vitamin B12 775 pg/mL (211-911)
[2023-10-14 18:17] LABS: ALB/GLOB Ratio 0.5 RATIO (0.9-2.4); AST(SGOT) 17 U/L (15-37); Alanine Aminotransfer ALT/SGPT 15 U/L (16-61); Albumin, Serum 2.6 g/dL (3.2-5.0); Alkaline Phosphatase 93 U/L (45-117); Anion Gap 7 (5-15); BUN 29 mg/dL (7-18); BUN/Creat Ratio 16.4 RATIO (10-20); Calcium,Total 8.8 mg/dL (8.5-10.1); Chloride 105 mmol/L (98-107); Creatinine, Serum 1.77 mg/dL (0.70-1.30); EST Glomerular Filtration Rate 39 mL/min (>60); Est Glom Filt Rate - Afr Amer 47 mL/min (>60); Globulin 4.9 g/dL (2.2-4.2); Glucose 149 mg/dL (74-106); LDH 131 U/L (87-241); PSA,Total - Annual Screen 4.53 ng/mL (0.00-4.00); Potassium 4.5 mmol/L (3.5-5.1); Protein, Total 7.5 g/dL (6.4-8.2); Sodium Level 136 mmol/L (136-145); Thyroid Stim Hormone (TSH) 0.72 uIU/mL (0.358-3.74)
[2023-10-14 18:20] LABS: Differential Comment SCANNED; Erythrocyte Sedimentation Rate 99 mm/hr (0-20)
[2023-10-16 16:09] LABS: Immunoglobulin A 479 mg/dL (61-437); Immunoglobulin G 1354 mg/dL (603-1613); Immunoglobulin M 80 mg/dL (15-143)
[2023-10-18 15:09] LABS: CCP IgG Antibodies 13 units (0-19)
== END | disposition home or self-care (01) ==
LOC: BFHLAB 16:06
PROVIDERS: PCP Family Medicine; Referring Provider Family Medicine; Visit Provider Family Medicine
DX: E11.40 Type 2 diabetes mellitus with diabetic neuropathy, unspecified (principal); I10 Essential (primary) hypertension; R53.1 Weakness; D64.9 Anemia, unspecified; R77.1 Abnormality of globulin; R53.83 Other fatigue; Z12.5 Encounter for screening for malignant neoplasm of prostate
CPT/HCPCS: 36415; 80053; 82607; 82784; 83036; 83615; 84153; 84443; 85025; 85652; 86140; 86200; 86334; 86431; G0103

== ENCOUNTER → 2023-10-16 | Outpatient (CLI) | payer MEDICARE, SELFPAY ==
[2023-10-16 12:57] LABS: Microalbumin,Random Urine 67.8 mg/L (NO RANGE EST.)
[2023-10-18 16:10] LABS: PROELU- Albumin, Urine 34.6 % (.); PROELU- Alpha-1-Globulin,Ur 1.7 % (.); PROELU- Alpha-2-Globulin,Ur 13.9 % (.); PROELU- Beta Globulin, Ur 25.1 % (.); PROELU- Gamma Globulin, Ur 24.7 % (.); Total Protein, Ur 41.8 mg/dL (Not Estab.)
== END | disposition home or self-care (01) ==
LOC: BFHLAB 09:27
PROVIDERS: PCP Family Medicine; Referring Provider Family Medicine; Visit Provider Family Medicine
DX: E11.40 Type 2 diabetes mellitus with diabetic neuropathy, unspecified (principal); I10 Essential (primary) hypertension; R77.1 Abnormality of globulin; R53.83 Other fatigue
CPT/HCPCS: 82043; 82570; 84166

== ENCOUNTER 2023-11-17 15:42 | Emergency (ER) | payer MEDICARE, OTHER, SELFPAY ==
[2023-11-17 15:43] VITALS: BP 136/60; PULSE 85; RESP 19; TEMP 36.2; O2SAT 97
[2023-11-17 17:23] VITALS: PULSE 82; RESP 17; TEMP 36.1; O2SAT 97
--- NOTE | 2023-11-17 17:28 | EDS_ITS ---
HPI History of Present Illness Chief Complaint: Back Informant: patient Narrative Narrative: Patient is an 83-year-old male presenting with tailbone pain for the past 3 to weeks. He notes that he does sit a lot. It is worse when he touches it. Describes the pain as burning. Initially that maybe had a hemorrhoid and put hemorrhoidal cream on it with no relief. Denies any pain with bowel movements. Denies any changes bowel movements. Denies any fever or chills. Denies any trauma or falls. No other complaints or concerns reported at this time. 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 capsule 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 12/09/18 12/10/18 08:00 History cephalexin 500 mg capsule 500 mg PO Q6 #40 CAPSULES 11/17/23 Unknown Rx mupirocin 2 % topical ointment 1 applic topical TID 7 days #1 tube 11/17/23 Unknown Rx Allergy/AdvReac Type Severity Reaction Status Date / Time No Known Allergies Allergy Verified 12/09/18 13:53 Social History Smoking Status: Never smoker ROS ROS ED Constitutional Constitutional ED: Denies chills or fever(s) Gastrointestinal Gastrointestinal: Denies abdominal pain, constipation, nausea or vomiting Musculoskeletal Musculoskeletal: Reports other Details: tail bone pain ; Denies arthralgias or myalgias Integumentary Reports rash Hematologic/Lymphatic Hematologic/Lymphatic: Denies easy bleeding or easy bruising EXAM Physical Exam Const Vital Signs: 11/17/23 15:43 11/17/23 17:23 Temperature 97.2 F L 97 F L Temperature Source Temporal Pulse Rate 85 82 Respiratory Rate 19 H 17 Blood Pressure 136/60 H Blood Pressure Mean 85 Pulse Ox 97 97 Oxygen Delivery Method Room Air Positive well nourished and well developed General Appearance ED: well developed and NAD HEENT atraumatic Chest Wall inspection of chest normal Resp normal respiratory effort and clear to auscultation bilaterally Cardio regular rhythm Rate: regular rate GI normal to inspection, nondistended, normoactive bowel sounds, non-tender and non-distended GI Narrative: Normal rectal exam. No tenderness. No hemorrhoids appreciated. Back/Spine normal to inspection and no thoracic nor lumbar tenderness Back/Spine Narrative: No pinpoint tenderness to palpation of the coccyx/sacrum. Extremity normal to inspection and full ROM Psych mental status grossly normal and thought process normal Skin Skin Narrative: 1 cm slightly ulcerated/oozing wounds of the superior intergluteal cleft. Mild surrounding erythema. This appears most consistent with pressure wound. No associated fluctuance or abscess appreciated. MDM MDM MDM Narrative Medical decision making narrative: Patient is evaluated for tail bone pain. On exam patient has what appears to be stage II pressure wound. He notes he does sit a lot. I do not appreciate any underlying fluctuance and he does not have bony tenderness around the area. He is well-appearing with no systemic symptoms. I do not feel any mass or swelling of the rectum. I do not think this is any type of perirectal or perianal abscess. I do not think requires further imaging. Will be placed on Keflex and mupirocin. Localized wound care applied in the emergency room. Patient to follow-up with his primary care doctor for wound check. Encouraged to avoid sitting on the area and to use a donut pillow as needed. He verbalized agreement understand this plan. Discharged home in stable condition. Discharge Plan Triage Chief Complaint: Back ED Provider: Karine Iraheta Dx/Rx/DC Orders Clinical Impression: Pressure sore on sacrum, Pain in sacrum Instructions: ED Wound Care Prescriptions: New cephalexin 500 mg capsule 500 mg PO Q6 Qty: 40 0RF mupirocin 2 % ointment 1 applic topical TID 7 Days Qty: 1 0RF No Action aspirin 325 MG tablet 325 mg PO DAILY Patient Comments: stopped for surgery diltiazem HCl 120 MG tablet 120 mg PO DAILY Patient Comments: TAKE ONE TABLET BY MOUTH ONCE DAILY losartan 100 MG tablet 100 mg PO DAILY Patient Comments: TAKE ONE TABLET BY MOUTH EVERY DAY metformin 500 MG tablet 1,000 mg PO BID Patient Comments: TAKE TWO TABLETS BY MOUTH EVERY MORNING AND TWO TABLETS EVERY EVENING rosuvastatin 10 MG tablet 10 mg PO DAILY Patient Comments: TAKE ONE TABLET BY MOUTH ONCE DAILY sitagliptin phosphate 100 MG tablet 100 mg PO DAILY Patient Comments: TAKE ONE TABLET BY MOUTH EVERY DAY pregabalin 75 MG capsule 75 mg PO BID Primary Care Provider: Tai Lopez Referrals: Tai Lopez, DO [Primary Care Provider] - Activity Restrictions/Additional Instructions: Please avoid sitting on your buttocks as this is a suspect causing pressure wound. If he must sit please use an inflatable donut. Keep the area covered, clean and dry. You have been prescribed a topical ointment as well as an antibiotic. Please take this as prescribed. Please follow-up for wound check in 1 to 2 weeks with your primary care doctor. Return if you develop fever, worsening symptoms or further concerns. Print Language: Chinese Disposition Disposition: Home, Self Care Discharge Date/Time: 11/17/23 17:47
== END 2023-11-17 17:47 | disposition home or self-care (01) ==
PROVIDERS: Emergency Provider Emergency Medicine; PCP Family Medicine; Visit Provider Emergency Medicine
DX: L89.159 Pressure ulcer of sacral region, unspecified stage (principal); E11.9 Type 2 diabetes mellitus without complications; M53.3 Sacrococcygeal disorders, not elsewhere classified
CPT/HCPCS: 99282

== ENCOUNTER → 2023-12-17 | Outpatient (CLI) | payer MEDICARE, OTHER, SELFPAY ==
[2023-12-17 15:46] LABS: Absolute Lymphocyte Count 1.35 X10^3/uL (0.83-4.51); Absolute Neutrophil Count 8.6 X10^3/uL (2.0-7.7); Basophil# 0.02 X10^3/uL; Basophil% 0.2 % (0-1); Eosinophil# 0.02 X10^3/uL; Eosinophils% 0.2 % (0-5); Hematocrit 44.5 % (40-54); Hemoglobin 11.7 g/dL (13.0-16.5); Lymphocyte # 1.35 X10^3/ul (0.83-4.51); Lymphocyte % 12.5 % (19-41); Mean Corp Hgb Conc 26.3 g/dL (32-36); Mean Corpuscular Hgb 18.5 pg (27.0-32.0); Mean Corpuscular Volume 70.2 fL (80-94); Mean Platelet Vol. 9.1 fl (6.2-12.0); Monocyte# 0.73 X10^3/uL; Monocyte% 6.8 % (0-10); NRBC Flagged by Analyzer 0 % (0-5); Neutrophil # 8.59 X10^3/uL (2.7-7.7); Neutrophil % 79.7 % (47-70); POSITIVE MORPHOLOGY YES; Platelet Count 408 K/mm3 (150-450); RBC Distribution Width CV 24.6 % (11.6-14.6); RBC Distribution Width SD 57.6 fl (35.1-43.9); Red Blood Count 6.34 M/mm3 (4.6-6.2); White Blood Count 10.8 K/mm3 (4.4-11.0)
[2023-12-17 16:18] LABS: Differential Indicated SCAN CRITERIA MET
[2023-12-17 16:31] LABS: ALB/GLOB Ratio 0.4 RATIO (0.9-2.4); AST(SGOT) 7 U/L (15-37); Alanine Aminotransfer ALT/SGPT 16 U/L (16-61); Albumin, Serum 2.2 g/dL (3.2-5.0); Alkaline Phosphatase 116 U/L (45-117); Anion Gap 6 (5-15); BUN 22 mg/dL (7-18); BUN/Creat Ratio 16.5 RATIO (10-20); Calcium,Total 9.5 mg/dL (8.5-10.1); Chloride 103 mmol/L (98-107); Creatinine, Serum 1.33 mg/dL (0.70-1.30); EST Glomerular Filtration Rate 54 mL/min (>60); Est Glom Filt Rate - Afr Amer 66 mL/min (>60); Globulin 4.9 g/dL (2.2-4.2); Glucose 307 mg/dL (74-106); Potassium 5.2 mmol/L (3.5-5.1); Protein, Total 7.1 g/dL (6.4-8.2); Sodium Level 133 mmol/L (136-145)
[2023-12-17 17:07] LABS: Differential Comment SCANNED; Red Cell Morphology N CHROM NORMAL (NORM C&C)
[2023-12-17 17:08] LABS: Anisocytosis 2+; Erythrocyte Sedimentation Rate 95 mm/hr (0-20); Polychromasia 1+
== END | disposition home or self-care (01) ==
LOC: BFHLAB 13:32
PROVIDERS: PCP Family Medicine; Referring Provider Family Medicine; Visit Provider Family Medicine
DX: R53.83 Other fatigue (principal); R53.1 Weakness; I10 Essential (primary) hypertension; R06.00 Dyspnea, unspecified
CPT/HCPCS: 36415; 80053; 83880; 85025; 85652; 86140

== ENCOUNTER → 2023-12-25 | Outpatient (CLI) | payer MEDICARE, OTHER, SELFPAY ==
[2023-12-25 15:19] LABS: Erythrocyte Sedimentation Rate 63 mm/hr (0-20)
[2023-12-25 15:23] LABS: Absolute Lymphocyte Count 1.83 X10^3/uL (0.83-4.51); Absolute Neutrophil Count 9.7 X10^3/uL (2.0-7.7); Basophil# 0.01 X10^3/uL; Basophil% 0.1 % (0-1); Eosinophil# 0.01 X10^3/uL; Eosinophils% 0.1 % (0-5); Hemoglobin 12.5 g/dL (13.0-16.5); Lymphocyte # 1.83 X10^3/ul (0.83-4.51); Lymphocyte % 14.7 % (19-41); Mean Corp Hgb Conc 25.5 g/dL (32-36); Mean Corpuscular Hgb 17.9 pg (27.0-32.0); Mean Corpuscular Volume 70.3 fL (80-94); Monocyte# 0.82 X10^3/uL; Monocyte% 6.6 % (0-10); NRBC Flagged by Analyzer 0.8 % (0-5); Neutrophil # 9.65 X10^3/uL (2.7-7.7); Neutrophil % 77.5 % (47-70); POSITIVE MORPHOLOGY YES; Platelet Count 196 K/mm3 (150-450); RBC Distribution Width CV 25.3 % (11.6-14.6); RBC Distribution Width SD 59.3 fl (35.1-43.9); Red Blood Count 6.97 M/mm3 (4.6-6.2); White Blood Count 12.4 K/mm3 (4.4-11.0)
[2023-12-25 15:24] LABS: ALB/GLOB Ratio 0.5 RATIO (0.9-2.4); AST(SGOT) 12 U/L (15-37); Alanine Aminotransfer ALT/SGPT 19 U/L (16-61); Albumin, Serum 2.3 g/dL (3.2-5.0); Alkaline Phosphatase 120 U/L (45-117); Anion Gap 4 (5-15); BUN 22 mg/dL (7-18); BUN/Creat Ratio 17.6 RATIO (10-20); Calcium,Total 9.6 mg/dL (8.5-10.1); Chloride 100 mmol/L (98-107); Creatinine, Serum 1.25 mg/dL (0.70-1.30); EST Glomerular Filtration Rate 59 mL/min (>60); Est Glom Filt Rate - Afr Amer 71 mL/min (>60); Globulin 4.5 g/dL (2.2-4.2); Glucose 238 mg/dL (74-106); LDH 148 U/L (87-241); Potassium 4.6 mmol/L (3.5-5.1); Protein, Total 6.8 g/dL (6.4-8.2); Sodium Level 134 mmol/L (136-145)
[2023-12-25 15:30] LABS: Differential Indicated SCAN CRITERIA MET
[2023-12-25 15:59] LABS: Differential Comment SCANNED
[2023-12-25 16:00] LABS: Anisocytosis 2+; Hypochromasia 1+; Ovalocyte RARE; Polychromasia RARE; Target Cells RARE
[2023-12-30 16:09] LABS: Immunoglobulin A 576 mg/dL (61-437); Immunoglobulin G 1252 mg/dL (603-1613); Immunoglobulin M 105 mg/dL (15-143); PROEL- A/G Ratio 0.7 (0.7-1.7); PROEL- Albumin 2.5 g/dL (2.9-4.4); PROEL- Alpha-1 Globulin 0.3 g/dL (0.0-0.4); PROEL- Alpha-2 Globulin 0.9 g/dL (0.4-1.0); PROEL- Gamma Globulin 1.2 g/dL (0.4-1.8); PROEL- Globulin, Total 3.6 g/dL (2.2-3.9); PROEL- TOTAL PROTEIN 6.1 g/dL (6.0-8.5); PROEL-M-Spike Comment: g/dL (Not Observed); PROELU- Albumin, Urine 38.9 % (.); PROELU- Alpha-1-Globulin,Ur 2.4 % (.); PROELU- Beta Globulin, Ur 24.8 % (.); PROELU- Gamma Globulin, Ur 19.9 % (.); Total Protein, Ur 21.4 mg/dL (Not Estab.)
== END | disposition home or self-care (01) ==
LOC: MTLAB 11:35
PROVIDERS: PCP Family Medicine; Referring Provider Family Medicine; Visit Provider Family Medicine
DX: R53.83 Other fatigue (principal); R63.4 Abnormal weight loss; M79.10 Myalgia, unspecified site; R79.82 Elevated C-reactive protein (CRP); R77.1 Abnormality of globulin
CPT/HCPCS: 36415; 80053; 82784; 83615; 84165; 84166; 85025; 85652; 86140; 86334

== ENCOUNTER → 2023-12-27 | Outpatient (CLI) | payer MEDICARE, OTHER, SELFPAY ==
--- NOTE | 2023-12-27 10:36 | CT_ITS ---
We are attempting to reach an attending provider to discuss findings. An addendum with communication details will be sent when the communication is complete. STUDY: CT CHEST, ABDOMEN T PELVIS WITH CONTRAST REASON FOR EXAM: Male, 83 years old. FATIGUE, WT LOSS, EARLY SATIETY, ABN LABS RADIATION DOSAGE (If Supplied By Facility): CTDIvol = ( 19.69 ) mGy, DLP = ( 1834.72 ) mGycm TECHNIQUE: Transaxial imaging was performed following intravenous administration of Oral and amp; IV Gastrografin and amp; 100mL Isovue-300. The protocol utilizes one or more of the following dose reduction techniques: automated exposure control, adjustment of mA and/or kV according to patient size,and/or use of iterative reconstruction technique. COMPARISON: CT of the abdomen and pelvis dated December 10, 2018 FINDINGS: CHEST Within the right upper lobe there is a 17.1 mm multilobed nodule. There is a right pleural effusion associated with right lower lobe consolidation. There is no demonstrated pleural abnormality. There are calcifications of the coronary arteries. There is no evidence of right heart strain. Normal mediastinum. Normal hilar regions. There are filling defects within subsegmental pulmonary arteries throughout the lungs, most pronounced within the lower lobes, consistent with pulmonary emboli. Normal aorta arch and descending thoracic aorta. There are multi-level degenerative changes of the thoracic spine. The bones are diffusely demineralized. There are indeterminate radiolucencies throughout the bony thorax. ABDOMEN There are multiple new ill-defined lesions throughout the liver cyst and with metastases. There are gallstones within a contracted gallbladder. Normal spleen. There is a 10.4 x 9.9 x 12.5 cm solid mass arising from the left kidney that is centrally low in attenuation consistent with necrosis. The left renal mass abuts or invades the tail of the pancreas. The mass abuts the proximal greater curvature of the stomach as well. Normal bilateral adrenal glands. There is an indeterminate high attenuation 1.4 cm focus arising from the lower pole of the right kidney. There is an ill-defined low-attenuation focus within the mid/lower pole of the right kidney as well. There are nonobstructing left renal calculi. Normal visualized stomach. Normal small intestine. Normal colon. The appendix is visualized and appears normal. There is diffuse atherosclerotic calcification of the abdominal aorta, without a demonstrated aneurysm. Normal inferior vena cava. Normal retroperitoneum. PELVIS Normal urinary bladder. There is no pelvic fluid. There is no pelvic lymphadenopathy or mass lesion. There is enlargement of the prostate gland. There is diffuse atherosclerotic calcification of the pelvic arteries. Normal abdominal wall. There are diffuse degenerative changes of the visualized lumbar spine. There are indeterminate radiolucencies within the bony pelvis. CT/CT Chest, Abd, Pel w/Contrast IMPRESSION: Bilateral pulmonary emboli. 10.4 x 9.9 x 4.5 cm left renal mass or consistent with a malignancy which abuts or invades the tail the pancreas. Multiple ill-defined hepatic lesions consistent with metastases. 17 mm right upper lobe nodule concerning for a metastasis. Small right pleural effusion associated with right lower lobe consolidation. Indeterminate radiolucencies within the bony thorax and pelvis, may be secondary to demineralization or neoplastic process. Enlarged prostate gland. Indeterminant low-attenuation and high attenuation round foci arising from the right kidney may reflect cysts, cannot exclude a neoplastic process. Cholelithiasis. Atherosclerosis. Electronically Signed: Scarlet Barrow MD at 13:43 EDT ,
== END | disposition home or self-care (01) ==
LOC: CT 10:35
PROVIDERS: PCP Family Medicine; Referring Provider Family Medicine; Visit Provider Family Medicine
DX: R53.83 Other fatigue (principal); R63.4 Abnormal weight loss; R79.82 Elevated C-reactive protein (CRP)
CPT/HCPCS: 71260; 74177; Q9967